=== PATIENT | female | born 1980 ===

== ENCOUNTER 2016-06-29 14:29 | Emergency (ER) | payer SELFPAY ==
[2016-06-29 15:17] VITALS: BP 119/72
--- NOTE | 2016-06-29 15:34 | UC ---
Lower Extremity/Ankle HPI - HPI Summary HPI Summary: complaint of right knee pain fell from approx 5 feet onto her right foot on exteded leg now has pain in her knee and lower leg when you walking it feels like a bone is popping in and out constant stabbing sharp pain in her knee couldn't walk after accident ambulating is difficult nothing lessens the pain hasn't taken any medication for pain - History of Current Complaint Chief Complaint: UCLowerExtremity Stated Complaint: FELL-LEG/KNEE PAIN Time Seen by Provider: 06/29/16 15:29 Hx Last Menstrual Period: [id number] Aggravating Factor(s): Ambulation Alleviating Factor(s): Nothing Able to Bear Weight: Yes Related History: Occupational Injury - Allergies/Home Medications Allergies/Adverse Reactions: Allergies Allergy/AdvReac Type Severity Reaction Status Date / Time No Known Allergies Allergy Verified 06/29/16 15:17 Home Medications: Home Medications Probiotic Product [Acidophilus] 1 PO DAILY 06/29/16 [History] PMH/Surg Hx/FS Hx/Imm Hx Previously Healthy: Yes Endocrine History Of: Denies: Diabetes, Thyroid Disease Cardiovascular History Of: Denies: Cardiac Disorders, Hypertension Respiratory History Of: Denies: COPD, Asthma GI/ History Of: Denies: Ulcer - Surgical History Surgical History: None - Family History Known Family History: Negative: Cardiac Disease, Hypertension, Diabetes - Social History Occupation: Employed Full-time Lives: With Family Alcohol Use: None Substance Use Type: None Smoking Status (MU): Never Smoked Tobacco Review of Systems Constitutional: Negative Skin: Negative Eyes: Negative ENT: Negative Respiratory: Negative Cardiovascular: Negative Gastrointestinal: Negative Genitourinary: Negative Motor: Negative Neurovascular: Negative Musculoskeletal: Other: - right knee pain Neurological: Negative Psychological: Negative All Other Systems Reviewed And Are Negative: Yes Physical Exam Triage Information Reviewed: Yes Appearance: Well-Appearing, No Pain Distress, Well-Nourished Vital Signs: Initial Vital Signs Temp 37.3 F 06/29/16 15:11 Pulse 63 06/29/16 15:11 Resp 20 06/29/16 15:11 BP 119/72 06/29/16 15:11 Pulse Ox 100 06/29/16 15:11 Vital Signs Reviewed: Yes Eyes: Positive: Conjunctiva Clear ENT: Positive: Pharynx normal, TMs normal Neck: Positive: No Lymphadenopathy Respiratory: Positive: Lungs clear, Normal breath sounds, No respiratory distress Cardiovascular: Positive: RRR, No Murmur, Pulses Normal Abdomen Description: Positive: Nontender, Soft Bowel Sounds: Positive: Present Musculoskeletal: Positive: Other: - RLE tenderness in proximal fibula and behind knee , Full ROM (extension/flexion).pain with flexion Limited internal and external rotation. negative Anterior/Posterior Drawer signs, Lachmans, and McMurrays Tests. No effusion, bulge/balloon sign Neurological Exam: Normal Psychological Exam: Normal Skin Exam: Normal Lower Extremity Course/Dx - Course Course Of Treatment: exam completed. knee xray negative for fracture. will tetreat with RICE followup with ortho if no improvement - Differential Dx/Diagnosis Differential Diagnosis/HQI/PQRI: Contusion, Fracture (Closed), Strain Provider Diagnoses: right knee contusion due to trauma Discharge - Discharge Plan Condition: Stable Disposition: HOME Patient Education Materials: Contusion in Adults (ED), Knee Pain (ED), RICE Therapy (ED) Referrals: Zach Severino DO [Primary Care Provider] - Phillip See MD [Medical Doctor] - Additional Instructions: Please call powered bridge specialist for an appointment. They will evaluate and determine if you need further treatment. It is important to keep weight off of your knee please use crutches for 2-3 days. Take ibuprofen to control pain and reduce inflammation. Please review your discharge instructions. If your symptoms worsen call powered bridge specialist or return to urgent care.
[2016-06-29] MEDS ORDERED: Ibuprofen TAB* 400 MG PO ONE (15:38)
--- NOTE | 2016-06-29 16:10 | RAD ---
Indication: Right knee injury. 4 views of the right knee demonstrates no fracture. No other bone or joint abnormality is identified. No joint effusion is noted. IMPRESSION: Unremarkable right knee.
== END 2016-06-29 16:45 | disposition home or self-care (01) ==
LOC: UCEAST 14:29
DX: S80.01XA Contusion of right knee, initial encounter (principal); W17.89XA Other fall from one level to another, initial encounter; Y93.9 Activity, unspecified; Y92.9 Unspecified place or not applicable; Y99.0 Civilian activity done for income or pay
CPT/HCPCS: 99213; A9270-GY; G0463

== ENCOUNTER 2018-07-22 13:52 | Emergency (ER) | payer BC ==
[2018-07-22 14:06] VITALS: BP 135/78
--- NOTE | 2018-07-22 15:26 | ED ---
Throat Pain/Nasal Congestion - HPI Summary HPI Summary: 37-year-old female presents with dental pain for the past day. She states she did not break tooth. Has a history of dental infections has tried to follow up with a dentist but cannot get an appointment. She's been taking ibuprofen for pain which has been helping. - History of Current Complaint Chief Complaint: UCDentalProblem Time Seen by Provider: 07/22/18 15:16 - Allergies/Home Medications Allergies/Adverse Reactions: Allergies Allergy/AdvReac Type Severity Reaction Status Date / Time No Known Allergies Allergy Verified 07/22/18 14:06 PMH/Surg Hx/FS Hx/Imm Hx Endocrine/Hematology History: Denies: Hx Diabetes, Hx Thyroid Disease Cardiovascular History: Denies: Hx Hypertension Respiratory History: Denies: Hx Asthma, Hx Chronic Obstructive Pulmonary Disease (COPD) GI History: Denies: Hx Ulcer Infectious Disease History: No Infectious Disease History: Denies: Hx Hepatitis, Hx Human Immunodeficiency Virus (HIV), Traveled Outside the [place] in Last 30 Days - Family History Known Family History: Negative: Cardiac Disease, Hypertension, Diabetes - Social History Alcohol Use: None Substance Use Type: Reports: None Smoking Status (MU): Never Smoked Tobacco Review of Systems Negative: Fever Positive: Dental Pain Negative: Chest Pain Negative: Shortness Of Breath All Other Systems Reviewed And Are Negative: Yes Physical Exam Triage Information Reviewed: Yes Vital Signs On Initial Exam: Initial Vitals Temp Pulse Resp BP Pulse Ox 98 F 74 16 135/78 100 07/22/18 14:03 07/22/18 14:03 07/22/18 14:03 07/22/18 14:03 07/22/18 14:03 Vital Signs Reviewed: Yes Appearance: Positive: Well-Appearing Skin: Positive: Warm, Dry Head/Face: Positive: Normal Head/Face Inspection Eyes: Positive: Normal, EOMI, FREDI ENT: Positive: Normal ENT inspection, Pharynx normal, TMs normal Dental: Positive: Percussion Tenderness @ - 3, Gross Decay/Caries @ - throughout , Dental Fracture @ - 3. Negative: Abscess @ Respiratory/Lung Sounds: Positive: Clear to Auscultation, Breath Sounds Present Cardiovascular: Positive: Normal, RRR Musculoskeletal: Positive: Normal Neurological: Positive: Normal Psychiatric: Positive: Normal Diagnostics - Vital Signs Vital Signs Temp Pulse Resp BP Pulse Ox 04/26/19 14:03 98 F 74 16 135/78 100 - Laboratory Lab Statement: Any lab studies that have been ordered have been reviewed, and results considered in the medical decision making process. EENT Course/Dx - Course Course Of Treatment: 37-year-old female presents with dental pain for the past day. She states she did not break tooth. Has a history of dental infections has tried to follow up with a dentist but cannot get an appointment. She's been taking ibuprofen for pain which has been helping. On exam tenderness tooth 3. No abscess noted. Will treat with penicillin. Told continues ibuprofen. Told to follow up with dentist. We'll have follow-up with primary about blood pressure. Patient understands agrees plan. - Differential Diagnoses Differential Diagnoses: Dental Abscess, Dental Caries, Fractured Tooth - Diagnoses Provider Diagnoses: Dental infection Discharge - Sign-Out/Discharge Documenting (check all that apply): Patient Departure All imaging exams completed and their final reports reviewed: No Studies - Discharge Plan Condition: Good Disposition: HOME Prescriptions: Penicillin VK TAB* [Penicillin VK 250 mg Tab*] 500 mg PO QID #28 tab Patient Education Materials: Toothache (ED) Referrals: Zach Severino DO [Primary Care Provider] - Additional Instructions: Take antibiotics: 4 times a day for 7 days Use ibuprofen or tyenlol every 6 hours Avoid hard, crunchy food until seen by dentist Follow up with dentist as soon as possible Return to ED if develop fever, shortness of breath, pain with eye movement or swelling around eye - Billing Disposition and Condition Condition: GOOD Disposition: Home Images - Images Dental: 1 - pain
== END 2018-07-22 15:30 | disposition home or self-care (01) ==
LOC: UCEAST 13:52
DX: K04.7 Periapical abscess without sinus (principal)
CPT/HCPCS: 99212; G0463